=== PATIENT | female | born 1955 | race Caucasian/White ===

== ENCOUNTER → 2020-01-21 09:38 | Outpatient (CLI) | payer OTHER, SELFPAY ==
[2019-11-04 13:45] VITALS: BMI 29.1
--- NOTE | 2020-01-21 09:40 | STE_ITS ---
Reason For Study: FAMILY HX Stress Results Protocol: [facility] Protocol Maximum Predicted HR: 157 bpm Target HR: 133 bpm % Maximum Predicted HR: 87 % DurationHeart Rate Stage (mm:ss) (bpm) BP Comment BASELINE 67 130/82 STAGE 1 3:00 93 130/64 STAGE 2 3:00 108 148/78 STAGE 3 3:00 125 170/80SLIGHT SOB STAGE 4 0:31 137 / RECOVERY 85 130/88 Stress Duration: 9:31 mm:ss Maximum Stress HR: 137 bpm Baseline Echocardiogram Findings The estimated ejection fraction is 65 %. Stress Echo Wall motion Data Resting WM Intermediate WM Stress WM Resting Wall Motion Wall Motion Stress No regional wall motion No regional wall motion abnormalities noted. abnormalities noted. EKG Data The baseline ECG displays normal sinus rhythm. The patient exercised according to the regular Marcos protocol for a total duration of 9:31. The maximum heart rate attained was 142 beats per minute. This was 90% of maximum predicted heart rate. The patient exercised into stage 4 of the Marcos protocol. During stress, there were no ST or T wave changes noted to suggest ischemia. No clinical angina was noted. Interpretation Summary The estimated ejection fraction is 65 %. Normal, adequate, treadmill echocardiogram. Negative for ischemia by EKG and echocardiographic criteria. No anginal symptoms noted. Rare PAC and PVCs during exercise. Average exercise capacity for age. Test terminated due to attainment of target heart rate and dyspnea. Appropriate blood pressure response to exercise. Final LVEF is 75%. Patient tolerated procedure well. Ordering Physician: Marty Cotto Referring Physician: Marty Cotto Performed By: Caroline Villareal RDCS, RVT
[2020-01-21 13:14] LABS: AST(SGOT) 17 U/L (15-37); Alanine Aminotransfer ALT/SGPT 21 U/L (13-56); Albumin, Serum 3.6 g/dL (3.2-5.0); Alkaline Phosphatase 103 U/L (45-117); Cholesterol 166 mg/dL (200); Globulin 3.6 g/dL (2.2-4.2); High Density Lipoprotein 63 mg/dL; Protein, Total 7.2 g/dL (6.4-8.2); Triglycerides 113 mg/dL; Very Low Density Lipoprotein 23 mg/dL (5-40)
== END ==
PROVIDERS: PCP Internal Medicine; Referring Provider Internal Medicine Cardiovascular Disease; Visit Provider Internal Medicine Cardiovascular Disease
DX: E78.5 Hyperlipidemia, unspecified (principal); Z82.49 Family history of ischemic heart disease and other diseases of the circulatory system
CPT/HCPCS: 36415; 80061; 80076; 93017; 93350

== ENCOUNTER → 2020-02-12 13:55 | Outpatient (CLI) | payer OTHER, SELFPAY ==
[2019-11-04 13:45] VITALS: BMI 29.1
--- NOTE | 2020-02-12 13:55 | ECHOD_ITS ---
Reason For Study: FAM HX Procedure This was a 2D Doppler, Color Flow transthoracic echocardiogram. Exam performed portable in patient room. Left Ventricle Normal size and thickness. The estimated ejection fraction is 65 %. Stage 1 diastolic dysfunction. No regional wall motion abnormalities noted. Right Ventricle Normal size and thickness. Normal systolic function. Atria Normal left atrium. Normal right atrium. Normal atrial septum. Mitral Valve The mitral valve is structurally normal. No prolapse or stenosis seen. Tricuspid Valve Normal tricuspid valve. Trivial tricuspid valve insufficiency. Right ventricular systolic pressure estimated to be 19 mmHg. Aortic Valve Normal aortic valve. Trisinus/trileaflet aortic valve. Pulmonic Valve Normal pulmonic valve. Great Vessels Normal aortic root. Normal arch. Normal inferior vena cava. Inferior vena cava collapse with sniff. Pericardium/Pleural No pericardial effusion. MMode/2D Measurements & Calculations LVIDd: 4.3 cm IVSd: 0.80 cm Ao root diam: 3.2 cm LVIDs: 2.8 cm LVPWd: 0.88 cm RVDd: 3.5 cm FS: 36.4 % LAV(MOD-bp): 34.7 ml LA A4 area: 15.2 cm2 LA dimension(2D): 3.4 cm LAV(MOD-bp) Indexed: 19.5 ml/m2 LAV(MOD-sp2): 35.3 ml LAV(MOD-sp4): 32.5 ml RA A4 area: 10.1 cm2 Time Measurements MV dec time: 0.27 sec Doppler Measurements & Calculations MV E max joe: 71.9 cm/sec Lat Peak E' Joe: 11.8 cm/sec Med Peak E' Joe: 8.0 cm/sec MV A max joe: 93.6 cm/sec E/E' lat: 6.1 E/E' med: 9.0 MV E/A: 0.77 Ao V2 max: 168.7 cm/sec LV V1 max: 102.4 cm/sec PA V2 max: 78.8 cm/sec Ao max P.4 mmHg LV V1 max P.2 mmHg TR max joe: 226.1 cm/sec TR max P.5 mmHg Interpretation Summary The estimated ejection fraction is 65 %. Stage 1 diastolic dysfunction. Trivial tricuspid valve insufficiency. Right ventricular systolic pressure estimated to be 19 mmHg. There is no comparison study available. Ordering Physician: Marty Cotto Referring Physician: AMPARO RAYMUNDO Performed By: Caroline Villareal, ROSALVA, RVT
== END ==
PROVIDERS: PCP Internal Medicine; Referring Provider Internal Medicine Cardiovascular Disease; Visit Provider Internal Medicine Cardiovascular Disease
DX: E78.5 Hyperlipidemia, unspecified (principal); Z82.49 Family history of ischemic heart disease and other diseases of the circulatory system
CPT/HCPCS: 93306

== ENCOUNTER → 2021-07-15 10:24 | Outpatient (CLI) | payer MEDICARE, SELFPAY ==
[2021-07-15 11:57] LABS: AST(SGOT) 15 U/L (15-37); Alanine Aminotransfer ALT/SGPT 22 U/L (13-56); Albumin, Serum 3.3 g/dL (3.2-5.0); Alkaline Phosphatase 82 U/L (45-117); Bilirubin, Direct 0.13 mg/dL (0.00-0.30); Cholesterol 155 mg/dL (200); Globulin 3.7 g/dL (2.2-4.2); High Density Lipoprotein 60 mg/dL; Triglycerides 90 mg/dL; Very Low Density Lipoprotein 18 mg/dL (5-40)
[2021-07-15 12:00] LABS: ALB/GLOB Ratio 0.9 RATIO (0.9-2.4); AST(SGOT) 15 U/L (15-37); Alanine Aminotransfer ALT/SGPT 21 U/L (13-56); Albumin, Serum 3.3 g/dL (3.2-5.0); Alkaline Phosphatase 82 U/L (45-117); Anion Gap 2 (5-15); BUN 11 mg/dL (7-18); BUN/Creat Ratio 11.5 RATIO (10-20); Calcium,Total 8.6 mg/dL (8.5-10.1); Chloride 110 mmol/L (98-107); Cholesterol 160 mg/dL (200); Creatinine, Serum 0.96 mg/dL (0.55-1.02); EST Glomerular Filtration Rate 62 mL/min (>60); Est Glom Filt Rate - Afr Amer 75 mL/min (>60); Globulin 3.7 g/dL (2.2-4.2); Glucose 98 mg/dL (74-106); High Density Lipoprotein 62 mg/dL; Potassium 4.4 mmol/L (3.5-5.1); Sodium Level 140 mmol/L (136-145); Triglycerides 92 mg/dL; Very Low Density Lipoprotein 18 mg/dL (5-40)
== END ==
PROVIDERS: Specialist; PCP Internal Medicine; Referring Provider Internal Medicine Cardiovascular Disease; Visit Provider Internal Medicine Cardiovascular Disease
DX: E78.5 Hyperlipidemia, unspecified (principal); Z82.49 Family history of ischemic heart disease and other diseases of the circulatory system
CPT/HCPCS: 36415; 80053; 80061; 80076